=== PATIENT | female | born 1980 | race Two or more races ===

== ENCOUNTER 2020-12-09 11:09 | Emergency (ER) | payer MEDICAID, SELFPAY ==
[2020-12-09 11:26] VITALS: BP 116/74; PULSE 95; RESP 17; TEMP 36.6; O2SAT 100; BMI 22.2
--- NOTE | 2020-12-09 11:59 | XR_ITS ---
EXAMINATION: XR THORACIC SPINE XR LUMBAR SPINE CLINICAL INFORMATION: Status post pushing heavy objects now with mid to lower back pain COMPARISON: None TECHNIQUE: 2 views of the thoracic spine and 3 views of the lumbar spine were obtained FINDINGS: There are 5 nonrib-bearing lumbar-type vertebral bodies. There is no acute visible fracture or dislocation. Very mild S-shaped curvature of the thoracolumbar spine. Minimal anterior marginal osteophytes of the lower lumbar spine. Vertebral body heights and disc spaces are otherwise maintained. Posterior elements are intact. Paraspinal soft tissues are unremarkable. Visualized bowel gas pattern is nonobstructive. Incidental note of enlargement of the right hepatic lobe. Pelvic phleboliths are visualized. XR/XR thoracic spine 2V IMPRESSION: 1. No acute visible fracture or dislocation. 2. Minimal degenerative changes. 3. Incidental note of enlargement of the right hepatic lobe.
--- NOTE | 2020-12-09 11:59 | XR_ITS ---
EXAMINATION: XR THORACIC SPINE XR LUMBAR SPINE CLINICAL INFORMATION: Status post pushing heavy objects now with mid to lower back pain COMPARISON: None TECHNIQUE: 2 views of the thoracic spine and 3 views of the lumbar spine were obtained FINDINGS: There are 5 nonrib-bearing lumbar-type vertebral bodies. There is no acute visible fracture or dislocation. Very mild S-shaped curvature of the thoracolumbar spine. Minimal anterior marginal osteophytes of the lower lumbar spine. Vertebral body heights and disc spaces are otherwise maintained. Posterior elements are intact. Paraspinal soft tissues are unremarkable. Visualized bowel gas pattern is nonobstructive. Incidental note of enlargement of the right hepatic lobe. Pelvic phleboliths are visualized. XR/XR lumbar spine 2-3V IMPRESSION: 1. No acute visible fracture or dislocation. 2. Minimal degenerative changes. 3. Incidental note of enlargement of the right hepatic lobe.
--- NOTE | 2020-12-09 12:13 | ED.BACK ---
HPI - Back Pain/Injury General Chief Complaint: Back Pain/Injury Stated Complaint: back pain Time Seen by Provider: 12/09/20 11:45 Source: patient Mode of arrival: ambulatory Limitations: no limitations History of Present Illness HPI Narrative: 40yoF c PMHx of anxiety, asthma and depression presenting to the ED with complaints of mid to lower back pain since yesterday after leaving the grocery store pushing too heavy carts up a hill to her home while helping her mother as well. Reports she has tried multiple [id number] medications along with Lidoderm patches and no symptomatic relief. Denies any other symptoms complaints or concerns at this time. Related Data Previous Rx's Medication Instructions Recorded cyclobenzaprine 10 mg PO TID PRN #14 tab 12/09/20 ibuprofen 800 mg PO Q8H PRN #14 tab 12/09/20 lidocaine [Lidoderm] 2 patch TOPICAL DAILY #30 ea 12/09/20 oxycodone-acetaminophen [Percocet] 1 tab PO Q6H PRN #10 tab 12/09/20 Allergies Allergy/AdvReac Type Severity Reaction Status Date / Time Influenza Virus Vaccines Allergy Itching Verified 12/09/20 11:30 Review of Systems Review of Systems: Constitutional : No trauma, No Weight loss, No Fever, No Chills, ENT/Mouth : No Hearing loss, No Ear Pain, No Nasal Congestion, No Sinus Pain, No Hoarseness, No sore throat, No Rhinorrhea, No Swallowing Difficulty Cardiovascular : No Chest Pain, No SOB Respiratory : No Cough, No Dyspnea Gastrointestinal : No Nausea, No Vomiting, No Diarrhea, No abdominal Pain, No Hematochezia, No Melena Genitourinary : No Dysuria, No Urinary Frequency, No Hematuria, No Urinary or Bowel Incontinence/retention Musculoskeletal : + Back pain, No neck pain, No joint stiffness, No joint swelling Skin : No Skin Lesions, No rash or signs of infection Neuro : No Weakness, No radiation, No Numbness, No Paresthesias, No headache, no loss of bowel or bladder incontinence, no saddle anesthesia Denies history of IV drug usage. Yes all other systems are reviewed and are negative PMFSH Past Medical History Attestation statement: The following information was validated with the patient. Medical History Anxiety Asthma Depression Social History Social History Advance Directives: No Advance Directives Information Provided: No Physical Exam Vital Signs: Vital Signs: Last Vital Signs Temp 97.8 F 12/09/20 11:26 Pulse 71 12/09/20 12:50 Resp 18 12/09/20 12:50 BP 117/61 12/09/20 12:50 Pulse Ox 98 12/09/20 12:50 Body Mass Index 22.2 vital signs have been reviewed as normal and appeared to be correct. Blood pressure normal. Heart rate normal. Respiration rate normal. Temperature normal. Oxygen saturation normal. Appearance: Alert. Oriented X3. No acute distress. Head: Normal external exam. Normocephalic. Atraumatic. Eyes: PERRLA. EOMI. Conjunctiva and sclera normal. Eyelids normal. ENT: EAC normal. TM's Normal. Pharynx normal. Uvula midline. Moist mucous membranes. Neck: Normal inspection. Neck supple. FROM. No adenopathy. No meningeal signs. CVS: Normal heart rate and rhythm. Heart sound normal. No murmurs noted. Pulses normal throughout. Respiratory: No respiratory distress. Painless inspiration. Breath sounds normal. No wheezes/rales/rhonchi noted. Chest nontender. No accessory muscle usage noted or decreased air movement noted. Abdomen: Soft and nontender. Bowel sounds normal in all 4 quadrants. No distention noted. No organomegaly noted. No visible injury noted. Back: No CVA tenderness. Full range of motion noted. No obvious deformities, or edema. Mild para-spinal muscular tenderness from lumbar region to coccyx. Full ROM in back and lower extremities. 5/5 strength hip extension/flexion, abduction, adduction. Mild Lumbar pain with hip flexion against resistance. Straight leg raise test negative on right; Straight leg raise test negative on left; Reflexes normal ankle and knee bilaterally; EHL motor strength normal bilaterally Skin: Skin warm and dry. Normal skin color. Normal skin turgor. No rashes/lesions/lacerations noted. Extremities: Extremities exhibit normal range of motion. Extremities nontender. Neuro: Oriented X 3. No motor deficit. No sensory deficit. Reflexes normal. Course Course Course Narrative: Pt c likely muscular pain, but could be herniated disc. Neuro exam shows no deficits. Not c/w AAA/epidural abscess/dissection.No high risk Hx (Incont, fever, immunosupp, recent surgery/LP, coag, signif trauma, wt loss, puls mass, hx/o Ca, TB, or IVDU) to warrant MRI/CT today. Will obtain x-rays. Not c/w Pyelo/UTI/kidney stone. Not cauda equina syndrome. Will provide 30 mg of IM Toradol, 10 mg of Decadron and 2 Lidoderm patches. If imaging negative for any acute processes such as fractures will DC home with symptomatic treatment along with instructions return if any new or worsening symptoms. Patient understands agrees the plan. Reevaluation(s) Reevaluation #1: - patient had a vasovagal episode after receiving the Toradol injection she reports that this is common after receiving any shots although she did not tell me this when I offered her to Toradol shot. Patient was witnessed when this happened she did not hit her head she was able to lower herself to the ground and staff was next to her. Vitals are stable within normal limits. Patient denies any complaints at this time. Reports she also has had a history in the past of low potassium therefore at this time will obtain a CBC, basic metabolic panel and magnesium. Provide some apple juice as the patient's blood sugar is in the 90s and then re-evaluate. Time: 13:02 Reevaluation #2: - patient's labs within normal limits including liver function as the x-rays revealed that she had a enlarged hepatic lobe although patient does not have any abdominal pain therefore instruct patient to follow-up with her primary care provider based on the enlarged [place] lobe. Otherwise patient is feeling better will DC home with symptomatic treatment along with instructions to return if any new or worsening symptoms. Patient understands agrees the plan. Time: 14:07 MDM - Back Pain/Injury Medical Records Attestation: I reviewed the patient's medical records. Lab Data Attestation: I reviewed the patient's lab results. Result diagrams: 12/09/20 13:08 12/09/20 13:09 Labs: Lab Results 12/09/20 12/09/20 12/09/20 Range/Units 12:57 13:08 13:09 WBC 10.5 (4.8-10.8) X10*3/uL RBC 3.69 L (4.20-5.50) X10*6/uL Hgb 12.3 (12.0-16.0) g/dl Hct 36.7 L (37-47) % MCV 99.5 H (80-98) fL MCH 33.3 H (27.0-33.0) pg MCHC 33.5 (31.0-35.0) g/dl RDW 13.0 (11.0-16.0) % Plt Count 255 (160-400) X10*3/uL MPV 11.0 (9.4-12.3) fL Immature Gran % (Auto) 0.4 (0.0-0.4) % Neut % (Auto) 58.5 (45-73) % Lymph % (Auto) 29.3 (20-40) % Stanton % (Auto) 8.9 (2-11) % Eos % (Auto) 2.5 (0-4) % Baso % (Auto) 0.4 (0-2) % Lymph # (Auto) 3.1 (1.2-4.9) X10*3/uL Stanton # (Auto) 0.9 (0.1-1.2) X10*3/uL Eos # (Auto) 0.3 (0.0-0.4) X10*3/uL Baso # (Auto) 0.0 (0.0-0.2) X10*3/uL Abs Immat Gran (auto) 0.04 H (0.00-0.03) X10*3/uL Absolute Neuts (auto) 6.2 (2.0-8.3) X10*3/uL Absolute Nucleated RBC 0.000 (0.0-0.012) X10*3/uL Nucleated RBC % (auto) 0.0 (0.0-0.2) /100WBC Hold Blue Top SEE NOTE Sodium (135-145) mmol/L Potassium (3.3-5.1) mmol/l Chloride (96-108) mmol/L Carbon Dioxide (22-29) mmol/L Anion Gap (12-20) BUN (9-16) mg/dL Creatinine (0.5-1.4) mg/dL Estim Creat Clear Calc Estimated GFR POC Glucose 92 (60-115) mg/dL Random Glucose (60-115) mg/dL Calcium (8.4-10.2) mg/dL Magnesium (1.6-2.6) mg/dL Total Bilirubin (0.0-1.0) mg/dL Direct Bilirubin (0.0-0.5) mg/dL AST (5-31) U/L ALT (0-31) U/L Alkaline Phosphatase (39-117) U/L Total Protein (6.5-8.0) g/dL Albumin (3.5-5.0) g/dL 12/09/20 Range/Units 13:09 WBC (4.8-10.8) X10*3/uL RBC (4.20-5.50) X10*6/uL Hgb (12.0-16.0) g/dl Hct (37-47) % MCV (80-98) fL MCH (27.0-33.0) pg MCHC (31.0-35.0) g/dl RDW (11.0-16.0) % Plt Count (160-400) X10*3/uL MPV (9.4-12.3) fL Immature Gran % (Auto) (0.0-0.4) % Neut % (Auto) (45-73) % Lymph % (Auto) (20-40) % Stanton % (Auto) (2-11) % Eos % (Auto) (0-4) % Baso % (Auto) (0-2) % Lymph # (Auto) (1.2-4.9) X10*3/uL Stanton # (Auto) (0.1-1.2) X10*3/uL Eos # (Auto) (0.0-0.4) X10*3/uL Baso # (Auto) (0.0-0.2) X10*3/uL Abs Immat Gran (auto) (0.00-0.03) X10*3/uL Absolute Neuts (auto) (2.0-8.3) X10*3/uL Absolute Nucleated RBC (0.0-0.012) X10*3/uL Nucleated RBC % (auto) (0.0-0.2) /100WBC Hold Blue Top Sodium 139 (135-145) mmol/L Potassium 4.2 (3.3-5.1) mmol/l Chloride 106 (96-108) mmol/L Carbon Dioxide 26 (22-29) mmol/L Anion Gap 11 L (12-20) BUN 10 (9-16) mg/dL Creatinine 0.70 (0.5-1.4) mg/dL Estim Creat Clear Calc 71.4 Estimated GFR > 60 POC Glucose (60-115) mg/dL Random Glucose 97 (60-115) mg/dL Calcium 8.8 (8.4-10.2) mg/dL Magnesium 2.3 (1.6-2.6) mg/dL Total Bilirubin 0.4 (0.0-1.0) mg/dL Direct Bilirubin 0.2 (0.0-0.5) mg/dL AST 12 (5-31) U/L ALT 8 (0-31) U/L Alkaline Phosphatase 52 (39-117) U/L Total Protein 6.3 L (6.5-8.0) g/dL Albumin 4.1 (3.5-5.0) g/dL Imaging Data Thoracic/lumbar: Attestation: I personally reviewed and interpreted this imaging study as follows: Radiologist's impression: FINDINGS: There are 5 nonrib-bearing lumbar-type vertebral bodies. There is no acute visible fracture or dislocation. Very mild S-shaped curvature of the thoracolumbar spine. Minimal anterior marginal osteophytes of the lower lumbar spine. Vertebral body heights and disc spaces are otherwise maintained. Posterior elements are intact. Paraspinal soft tissues are unremarkable. Visualized bowel gas pattern is nonobstructive. Incidental note of enlargement of the right hepatic lobe. Pelvic phleboliths are visualized. IMPRESSION: 1. No acute visible fracture or dislocation. 2. Minimal degenerative changes. 3. Incidental note of enlargement of the right hepatic lobe. Discharge Plan Discharge Clinical Impression: Syncope, vasovagal, Lumbar strain, Strain of thoracic region Patient Disposition: Home, Self-Care Instructions: Syncope (ED), Low Back Strain (ED), Lower Back Exercises (ED), Core Strengthening Exercises (ED) Additional Instructions: You had a enlarged hepatic lobe although you are not having any abdominal pain in your liver function enzymes are within normal limits if you develop any abdominal pain you need to return if not just follow up with her primary care provider. Return if any new or worsening symptoms. Prescriptions: New cyclobenzaprine 10 mg tablet 10 mg PO TID PRN (Reason: muscle spasm) Qty: 14 RF: 0 ibuprofen 800 mg tablet 800 mg PO Q8H PRN (Reason: pain) Qty: 14 RF: 0 oxycodone-acetaminophen [Percocet] 5-325 mg tablet 1 tab PO Q6H PRN (Reason: pain) Qty: 10 RF: 0 lidocaine [Lidoderm] 5 % adhesive patch,medicated 2 patch topical DAILY Qty: 30 RF: 0 Referrals: [facility] [Primary Care Provider] - 2 days Stand Alone Forms: Work/School Release Print Language: Luxembourger
[2020-12-09] MEDS: dexAMETHasone 2 MG TABLET 10 MG PO (12:35)
[2020-12-09] MEDS: Ketorolac Tromethamine 30 MG/ML VIAL IM (12:35)
[2020-12-09] MEDS: Lidocaine 4 % Patch ADH..PATCH 2 PATCH TRANSDERMA (12:36)
--- NOTE | 2020-12-09 12:49 | PC.NURSE ---
PT HAD A NEAR SYNCOPAL EPISODE FOLLOWING IM INJECTION OF TORADOL. PT ASSISTED TO STRETCHER. SKIN PALE. A+OX3. VSS, 2 LITERS O2 NASAL CANNULA APPLIED. PROVIDER AWARE.
[2020-12-09 12:50] VITALS: BP 117/61; PULSE 71; RESP 18; O2SAT 98
[2020-12-09 13:00] LABS: Glucose, Whole Blood 92 mg/dL (60-115)
--- NOTE | 2020-12-09 13:14 | PC.NURSE ---
pt more alert now, texting on cellular device. skin wpd. neuros intact, blood drawn and sent to lab.
[2020-12-09 13:15] LABS: Basophils Percent Auto 0.4 % (0-2); Eosinophils Absolute Auto 0.3 X10*3/uL (0.0-0.4); Eosinophils Percent Auto 2.5 % (0-4); Hematocrit 36.7 % (37-47); Hemoglobin 12.3 g/dl (12.0-16.0); Imm Gran Abs Auto 0.04 X10*3/uL (0.00-0.03); Imm Gran Pct Auto 0.4 % (0.0-0.4); Lymphocytes Absolute Auto 3.1 X10*3/uL (1.2-4.9); Lymphocytes Percent Auto 29.3 % (20-40); MANUAL DIFF FLAG NO; Mean Corpuscular HGB Conc 33.5 g/dl (31.0-35.0); Mean Corpuscular Hemoglobin 33.3 pg (27.0-33.0); Mean Corpuscular Volume 99.5 fL (80-98); Monocytes Absolute Auto 0.9 X10*3/uL (0.1-1.2); Monocytes Percent Auto 8.9 % (2-11); Neutrophils Absolute Auto 6.2 X10*3/uL (2.0-8.3); Neutrophils Percent Auto 58.5 % (45-73); Platelet Count 255 X10*3/uL (160-400); Red Blood Count 3.69 X10*6/uL (4.20-5.50); White Blood Count 10.5 X10*3/uL (4.8-10.8)
[2020-12-09 13:43] LABS: Alanine Aminotransferase 8 U/L (0-31); Albumin Level 4.1 g/dL (3.5-5.0); Alkaline Phosphatase 52 U/L (39-117); Anion Gap 11 (12-20); Aspartate Amino Transferase 12 U/L (5-31); Bilirubin Direct 0.2 mg/dL (0.0-0.5); Bilirubin Total 0.4 mg/dL (0.0-1.0); Blood Urea Nitrogen 10 mg/dL (9-16); Calcium 8.8 mg/dL (8.4-10.2); Carbon Dioxide 26 mmol/L (22-29); Chloride 106 mmol/L (96-108); Creatinine Clr Calc Pharmacy 71.4; Estimated Glomerular Filt Rate > 60; Glucose Random 97 mg/dL (60-115); Magnesium 2.3 mg/dL (1.6-2.6); Potassium 4.2 mmol/l (3.3-5.1); Sodium 139 mmol/L (135-145); Total Protein 6.3 g/dL (6.5-8.0)
--- NOTE | 2020-12-09 14:25 | PC.NURSE ---
PT AMBULATED 50 FT TO BATHROOM WITH THIS RN, NO DIZZINESS, STEADY GAIT, MOVING ALL EXTREMITIES.
== END 2020-12-09 14:26 | disposition home or self-care (01) ==
PROVIDERS: Physician Assistant Medical; Emergency Provider Internal Medicine
DX: R55 Syncope and collapse (principal); S39.012A Strain of muscle, fascia and tendon of lower back, initial encounter; S29.012A Strain of muscle and tendon of back wall of thorax, initial encounter; X50.9XXA Other and unspecified overexertion or strenuous movements or postures, initial encounter; Y93.89 Activity, other specified; Y92.414 Local residential or business street as the place of occurrence of the external cause; Y99.9 Unspecified external cause status
CPT/HCPCS: 36415; 72070; 72100; 80048; 80076; 82947; 83735; 85025; 96372; 99283; 99284; J1885; J8540

== ENCOUNTER 2021-03-28 10:37 | Outpatient (REF) | payer MEDICAID, SELFPAY | END 2021-03-28 10:38 | disposition home or self-care (01) | LOC: HO.LAB 10:37 | PROVIDERS: Visit Provider Internal Medicine | DX: Z20.822 Contact with and (suspected) exposure to COVID-19 (principal) | CPT/HCPCS: C9803; U0003; U0005 ==

== ENCOUNTER 2021-08-09 11:28 | Outpatient (REF) | payer MEDICAID, SELFPAY ==
[2021-08-09 12:23] LABS: Hematocrit 36.9 % (37-47); Hemoglobin 12.4 g/dl (12.0-16.0); Mean Corpuscular HGB Conc 33.6 g/dl (31.0-35.0); Mean Corpuscular Hemoglobin 33.4 pg (27.0-33.0); Mean Corpuscular Volume 99.5 fL (80-98); Mean Platelet Volume 10.7 fL (9.4-12.3); Platelet Count 244 X10*3/uL (160-400); Red Blood Count 3.71 X10*6/uL (4.20-5.50); White Blood Count 7.7 X10*3/uL (4.8-10.8)
[2021-08-09 12:43] LABS: Estimated Average Glucose 85 mg/dL; Hemoglobin A1c % 4.6 %
[2021-08-09 13:12] LABS: Alanine Aminotransferase 8 U/L (0-31); Albumin Level 4.1 g/dL (3.5-5.0); Alkaline Phosphatase 62 U/L (39-117); Anion Gap 11 (12-20); Aspartate Amino Transferase 15 U/L (5-31); Bilirubin Direct 0.3 mg/dL (0.0-0.5); Bilirubin Total 0.7 mg/dL (0.0-1.0); Blood Urea Nitrogen 10 mg/dL (9-16); Calcium 9.6 mg/dL (8.4-10.2); Carbon Dioxide 25 mmol/L (22-29); Chloride 108 mmol/L (96-108); Cholesterol 150 mg/dL; Estimated Glomerular Filt Rate > 60; Glucose Random 87 mg/dL (60-115); HDL Cholesterol 43 mg/dL; LDL Cholesterol Calculated 97 mg/dl; Potassium 3.8 mmol/L (3.3-5.1); Sodium 140 mmol/L (135-145); Total Protein 6.4 g/dL (6.5-8.0); Triglycerides 50 mg/dL
[2021-08-09 13:37] LABS: Free T4 (Free Thyroxine) 0.77 ng/dL (0.71-1.85); Thyroid Stimulating Hormone 2.74 uIU/mL (0.32-4.0); Vitamin D 25-OH Total 24.4 ng/mL (>30)
[2021-08-09 14:14] LABS: CT PCR NOT DETECTED (Not Detect.); NG PCR NOT DETECTED (Not Detect.)
[2021-08-10 04:33] LABS: Syphilis Screen Nonreactive (Nonreactive)
[2021-08-10 04:41] LABS: Hepatitis A Antibody IgG Nonreactive (Nonreactive); ~Hepatitis A Antibody IgG 0.32 S/CO (0.00-0.99)
[2021-08-10 04:58] LABS: ~HepC Num1 0.09 S/CO (0.00-0.79); ~Hepatitis C Antibody Nonreactive (Nonreactive)
[2021-08-10 05:03] LABS: HBS Num1 0.87 mIU/mL (0-7.99); HBsAGNum1 0.25 S/CO (0.00-0.99); HIV AB/AG Nonreactive (Nonreactive); HIV Num 1 0.06 S/CO (0.00-0.99); Hepatitis B Surface Antigen Negative (Negative); ~Hepatitis B Surface Antibody NONREACTIVE (Nonreactive)
== END 2021-08-09 11:29 | disposition home or self-care (01) ==
LOC: HO.LAB 11:28
PROVIDERS: PCP Family Medicine; Visit Provider Family Medicine
DX: Z00.00 Encounter for general adult medical examination without abnormal findings (principal)
CPT/HCPCS: 80048; 80061; 80076; 82306; 83036; 84439; 84443; 85027; 86706; 86708; 86780; 86803; 87340; 87389; 87491; 87591

== ENCOUNTER 2021-08-16 13:38 | Outpatient (REF) | payer MEDICAID, SELFPAY ==
--- NOTE | ~2021-08-16 | MM_ITS ---
EXAMINATION: MM SCREENING DIGITAL BREAST TOMOSYNTHESIS, BILATERAL CLINICAL INFORMATION: Screening. Asymptomatic. The lifetime risk of breast cancer based on the Tyrer-Cuzick Model is 7%. COMPARISON: Mammography: 06/01/2019 (baseline), targeted right breast ultrasound 06/01/2019. TECHNIQUE: Digital breast tomosynthesis is performed in both the craniocaudal and mediolateral oblique views along with computer-aided detection (CAD). Synthesized 2D images are generated from the tomosynthesis. FINDINGS: The breasts are heterogeneously dense, which may obscure small masses (ACR BI-RADS breast composition Category c). The right breast shows no interval suspicious mass or architectural abnormality. There are no abnormal calcifications in either breast. The axilla and skin contours are unremarkable. Left breast has a new smooth oval mass 0.8 cm upper outer quadrant approximately 4 cm from nipple, likely a cyst. MM/MM tomosynthesis screening BI IMPRESSION: 1. Left: New smooth oval mass under 1 cm upper outer quadrant, likely a cyst. 2. Right: There are no significant changes from prior study. ASSESSMENT: BI-RADS 0: Incomplete - Need Additional Imaging Evaluation RECOMMENDATION: 1. Targeted left breast ultrasound. 2. Radiology department staff will contact the patient for additional imaging. Reviewed with This patient's information was entered into a reminder system with a target due date for their next mammogram.
== END 2021-08-16 13:39 | disposition home or self-care (01) ==
LOC: HO.MAMMO 13:38
PROVIDERS: PCP Family Medicine; Visit Provider Family Medicine
DX: Z12.31 Encounter for screening mammogram for malignant neoplasm of breast (principal)
CPT/HCPCS: 77063; 77067

== ENCOUNTER 2021-08-21 12:36 | Outpatient (REF) | payer MEDICAID, SELFPAY ==
--- NOTE | ~2021-08-21 | US_ITS ---
EXAMINATION: US DIAGNOSTIC ULTRASOUND BREAST, LEFT CLINICAL INFORMATION: Circumscribed density. COMPARISON: August 16, 2021 and June 01, 2019. TECHNIQUE: Ultrasound of the breast is performed with real-time carroll scale imaging and color Doppler. FINDINGS: About the 3:00 position 7 cm from the nipple there is a cyst with smooth back wall and increased through sound transmission. No internal vascularity. The cyst is wider than it is tall. It measures approximately 1.2 x 0.4 x 1.4 cm in size. This corresponds in size of and location to the mammographic finding. Results are discussed with the patient at time of visit. US/US breast LT limited IMPRESSION: Mammographic finding corresponds to a cyst at the 3:00 position 7 cm from nipple. ASSESSMENT: BI-RADS 2: Benign RECOMMENDATION: Routine annual mammography screening due in 12 months. This patient's information was entered into a reminder system with a target due date for their next mammogram.
== END 2021-08-21 12:37 | disposition home or self-care (01) ==
LOC: HO.MAMMO 12:36
PROVIDERS: Visit Provider Family Medicine
DX: N60.02 Solitary cyst of left breast (principal)
CPT/HCPCS: 76642

== ENCOUNTER 2022-03-17 20:24 | Emergency (ER) | payer MEDICAID, SELFPAY ==
[2022-03-17 20:49] VITALS: BP 117/66; PULSE 92; RESP 17; TEMP 37.1; O2SAT 98; BMI 19.5
--- NOTE | 2022-03-17 21:19 | ED.GENADULT ---
HPI - General Adult General Chief complaint: Back Pain/Injury Stated complaint: sharp pain in back, meds aren't working Source: patient Mode of arrival: ambulatory Limitations: no limitations History of Present Illness HPI narrative: 41-year-old female presents with muscular skeletal pain in her back. States that her back is been spasming and that she has been taking naproxen and baclofen with poor effect she has been trying to massage the site with poor effect. Does not report any particular strain, trauma, fall, or repetitive motion. Onset (ago): day(s) (5) Location: right and upper extremity Radiation: non-radiation Severity: moderate Severity scale (1-10): 6 Quality: stabbing and aching Pain Consistency: constant Relieving factors: none Exacerbating factors: movement and other (Palpation) Associated symptoms: denies other symptoms Treatments prior to arrival: NSAID Related Data Previous Rx's Medication Instructions Recorded cyclobenzaprine 10 mg tablet 10 mg PO TID PRN #14 tab 12/09/20 ibuprofen 800 mg tablet 800 mg PO Q8H PRN #14 tab 12/09/20 lidocaine 5 % topical patch 2 patch TOPICAL DAILY #30 ea 12/09/20 (Lidoderm) oxycodone-acetaminophen 5 mg-325 1 tab PO Q6H PRN #10 tab 12/09/20 mg tablet (Percocet) cyclobenzaprine 10 mg tablet 10 mg PO TID PRN #20 tab 03/17/22 Allergies Allergy/AdvReac Type Severity Reaction Status Date / Time Influenza Virus Vaccines Allergy Itching Verified 03/17/22 20:48 Review of Systems Review of Systems: Constitutional: No Fever, No Chills ENT/Mouth: No Ear Pain, No Hoarseness, No sore throat Eyes: No Eye Pain, No Swelling, No Redness, No Foreign Body Cardiovascular: No Chest Pain, No SOB Respiratory: No Cough, No Dyspnea Gastrointestinal: No Nausea, No Vomiting, No Diarrhea, No abdominal Pain Genitourinary: No Dysuria, No Hematuria Musculoskeletal: positive right trapezius pain, No Myalgias, No Joint Swelling Skin: No Skin lacerations, No rash Neuro: No Weakness, No Numbness, No Paresthesias, No Loss of Consciousness, No Dizziness, No Headache Psych: No Anxiety/Panic, No Depression Heme/Lymph: no easy bruising, no Lymphadenopathy Endocrine: No Polyuria, No Polydipsia Yes all other systems are reviewed and are negative [facility] Past Medical History Attestation statement: The following information was validated with the patient. Source: old records reviewed Medical History Anxiety Asthma Depression Social History Social History Advance Directives: No Physical Exam ED Vital Signs: Vital Signs - 24 hr 03/17/22 20:49 Temperature 98.7 F Pulse Rate 92 Respiratory Rate 17 Blood Pressure 117/66 Pulse Oximetry 98 BMI result Body Mass Index 19.5 Appearance: Alert. Oriented X3. No acute distress. Eyes: Pupils equal, round and reactive to light. ENT: Pharynx normal. Neck: Normal inspection. Neck supple. CVS: Normal heart rate and rhythm. Pulses normal. Respiratory: No respiratory distress. Breath sounds normal. Abdomen: Soft and nontender. Skin: Skin warm and dry. Normal skin color. Normal skin turgor. Extremities: Moves all extremities against resistance. Musculoskeletal spasm noted at the trapezius between the scapula and acromion process. Brisk capillary refill equal pulses. Strength 5/5 to all extremities. No vertebral tenderness or step-offs noted. Neuro: No motor deficit. No sensory deficit. Cranial nerves 2-12 intact. Course Course Course Narrative: 41-year-old female presents with trapezius spasm to the right side. Has full range of motion, strength 5/5 to all extremities, no vertebral tenderness or step-offs. Full range of motion to neck. No axial loading tenderness noted. There is a palpable muscular knot between the scapula and the acromion process to the right side. Tender to palpation. Patient was advised use muscle relaxers, heat or ice as needed, follow-up with primary care physician, possible massage therapy and physical therapy if needed. Patient does not have any abdominal pain or tenderness. No indication of cholecystitis as abdominal palpation and exam is negative for acute findings. Patient verbalized understanding of and agrees to plan of care to discharge home. Verbalized understanding of signs and symptoms indicating need for emergent intervention Medical Decision Making Differential Diagnosis Differential Diagnosis: Muscle spasm, musculoskeletal strain Medical Records Medical records reviewed: Yes I reviewed the patient's medical records. Discharge Plan Discharge Clinical Impression: Muscle spasm Patient Disposition: Home, Self-Care Instructions: Muscle Spasm (ED) Additional Instructions: You were evaluated for muscle spasm. Please take cyclobenzaprine 10 mg every 8 hours as needed for pain management and muscle spasming. This medication is a muscle relaxer, this medication can delay reaction time, increased risk for drowsiness, and falls. Do not drive or operate machinery while taking this medication. Please follow-up with your primary care physician. You may need physical therapy or massage therapy to help with this spasming. Thank you for choosing this emergency department for evaluation. Please follow-up with primary care physician as needed. Return to the emergency department for any new, concerning, or worsening symptoms. Prescriptions: New cyclobenzaprine 10 mg tablet 10 mg PO TID PRN (Reason: muscle spasm) Qty: 20 0RF No Action cyclobenzaprine 10 mg tablet 10 mg PO TID PRN (Reason: muscle spasm) Qty: 14 0RF ibuprofen 800 mg tablet 800 mg PO Q8H PRN (Reason: pain) Qty: 14 0RF oxycodone-acetaminophen [Percocet] 5-325 mg tablet 1 tab PO Q6H PRN (Reason: pain) Qty: 10 0RF lidocaine [Lidoderm] 5 % adhesive patch,medicated 2 patch topical DAILY Qty: 30 0RF Rx Instructions: leave on most painful area for up to 12 hrs. Can be substituted Interventions: ED Discharge Assessment Last Done: 03/17/22 21:50 Discharge Date/Time: 03/17/22 21:53
[2022-03-17] MEDS: Ketorolac Tromethamine 60 MG/2 ML VIAL IM (21:47)
[2022-03-17] MEDS: Cyclobenzaprine HCl 10 MG TABLET PO (21:48)
== END 2022-03-17 21:53 | disposition home or self-care (01) ==
PROVIDERS: Emergency Provider Emergency Medicine Emergency Medical Services
DX: M62.830 Muscle spasm of back (principal); J45.909 Unspecified asthma, uncomplicated
CPT/HCPCS: 96372; 99283; 99284; J1885

== ENCOUNTER 2023-11-27 12:16 | Outpatient (REF) | payer MEDICAID, SELFPAY ==
[2023-11-27 13:01] LABS: Hemoglobin 11.8 g/dl (12.0-16.0); Mean Corpuscular HGB Conc 33.7 g/dl (31.0-35.0); Mean Corpuscular Volume 97.8 fL (80.0-98.0); Mean Platelet Volume 10.7 fL (9.4-12.3); Platelet Count 252 X10*3/uL (160-400); Red Blood Count 3.58 X10*6/uL (4.20-5.50); Red Cell Distribution Width 14.5 % (11.0-16.0); White Blood Count 9.1 X10*3/uL (4.8-10.8)
[2023-11-27 13:31] LABS: Alanine Aminotransferase 8 U/L (0-31); Albumin Level 3.9 g/dL (3.5-5.0); Alkaline Phosphatase 57 U/L (39-117); Anion Gap 10 (12-20); Aspartate Amino Transferase 14 U/L (5-31); Bilirubin Direct 0.1 mg/dL (0.0-0.5); Bilirubin Total 0.3 mg/dL (0.0-1.0); Blood Urea Nitrogen 8 mg/dL (9-16); Calcium 8.9 mg/dL (8.4-10.2); Carbon Dioxide 28 mmol/L (22-29); Chloride 108 mmol/L (96-108); Cholesterol 159 mg/dL (<200); Estimated Glomerular Filt Rate > 60; Glucose Random 80 mg/dL (60-115); HDL Cholesterol 45 mg/dL (>40); LDL Cholesterol Calculated 100 mg/dL (<100); Potassium 3.6 mmol/L (3.3-5.1); Sodium 142 mmol/L (135-145); Total Protein 6.5 g/dL (6.5-8.0); Triglycerides 74 mg/dL (<150)
[2023-11-27 13:48] LABS: Free T4 (Free Thyroxine) 0.79 ng/dL (0.71-1.85); Vitamin D 25-OH Total 14.8 ng/mL (>30)
[2023-11-27 14:11] LABS: Estimated Average Glucose 85 mg/dL; Hemoglobin A1c % 4.6 % (<6.0)
[2023-11-27 15:37] LABS: CT PCR NOT DETECTED (Not Detect.); NG PCR NOT DETECTED (Not Detect.)
[2023-11-28 08:21] LABS: HBS Num1 0.12 mIU/mL (0-7.99); HBsAGNum1 0.43 S/CO (0.00-0.99); HIV AB/AG Nonreactive (Nonreactive); HIV Num 1 0.05 S/CO (0.00-0.99); Hepatitis B Surface Antigen Negative (Negative); ~HepC Num1 0.09 S/CO (0.00-0.79); ~Hepatitis B Surface Antibody NONREACTIVE (Nonreactive); ~Hepatitis C Antibody Nonreactive (Nonreactive)
[2023-11-28 14:38] LABS: RPR Rapid Plasma Reagin NON-REACTIVE (NON-REACTIVE)
[2023-11-29 20:14] LABS: TS Negative Control Passed; TS Panel A 1; TS Panel B 0; TS Positive Control Passed; TSpotTB Negative (Negative)
== END 2023-11-27 12:17 | disposition home or self-care (01) ==
LOC: HO.LAB 12:16
PROVIDERS: PCP Family Medicine; Visit Provider Family Medicine
DX: R23.2 Flushing (principal)
CPT/HCPCS: 0353U; 80048; 80061; 80076; 82306; 83036; 84439; 84443; 85027; 86481; 86592; 86706; 86803; 87340; 87389

== ENCOUNTER 2023-12-26 12:15 | Outpatient (REF) | payer MEDICAID, SELFPAY ==
--- NOTE | ~2023-12-26 | MM_ITS ---
EXAMINATION: MM SCREENING DIGITAL BREAST TOMOSYNTHESIS, BILATERAL CLINICAL INFORMATION: Screening. Asymptomatic. COMPARISON: Mammography: This study is compared with prior exams dating back to 2019. TECHNIQUE: Digital breast tomosynthesis is performed in both the craniocaudal and mediolateral oblique views along with computer-aided detection (CAD). Synthesized 2D images are generated from the tomosynthesis. FINDINGS: The breasts are heterogeneously dense, which may obscure small masses (ACR BI-RADS breast composition Category c). There are grouped calcifications in the upper outer quadrant of the left breast anterior depth. It warrant additional mammographic imaging magnification. In the right breast, there are no significant masses, abnormal calcifications, or other abnormalities. MM/MM tomosynthesis screening BI IMPRESSION: Grouped calcifications in the upper outer quadrant of the left breast warrants additional mammographic imaging with magnification. No mammographic signs of malignancy right breast. ASSESSMENT: BI-RADS BI-RADS 0 - Incomplete: Needs additional Imaging. RECOMMENDATION: Additional views of the left breast. Radiology department staff will contact the patient for additional imaging. Additional Imaging required This examination should not preclude the clinical evaluation of a suspicious palpable abnormality. This patient's information was entered into a reminder system with a target due date for their next mammogram.
== END 2023-12-26 12:16 | disposition home or self-care (01) ==
LOC: HO.MAMMO 12:15
PROVIDERS: PCP Family Medicine; Visit Provider Family Medicine
DX: Z12.31 Encounter for screening mammogram for malignant neoplasm of breast (principal)
CPT/HCPCS: 77063; 77067

== ENCOUNTER → 2023-12-26 12:30 | Outpatient (BNV) | payer MEDICAID, SELFPAY | PROVIDERS: PCP Family Medicine; Visit Provider Radiology Diagnostic Radiology | DX: Z12.31 Encounter for screening mammogram for malignant neoplasm of breast (principal) | CPT/HCPCS: 77063; 77067 ==

== ENCOUNTER 2024-01-30 12:54 | Outpatient (REF) | payer MEDICAID, SELFPAY ==
--- NOTE | ~2024-01-30 | US_ITS ---
EXAMINATION: US PELVIS CLINICAL INFORMATION: Irregular menses for 3-4 months LMP 01/04/2024 COMPARISON: None available. TECHNIQUE: Ultrasound of the pelvis is performed using both transabdominal and transvaginal transducers along with Doppler. Transvaginal imaging is performed due to inadequate visualization transabdominally. FINDINGS: Uterus: The uterus is anteverted and measures 10.0 x 4.6 x 5.6 cm. No focal fibroid The endometrial thickness is 1.4 cm The uterus is smooth in contour and has normal myometrial echogenicity. Adnexa: Both ovaries are visualized. There is normal color flow to the adnexa. There is no ovarian torsion. There is no pelvic ascites or fluid collection. Right ovary measures 2.6 x 1.9 x 1.7 cm. Volume 4.4 mL. Left ovary measures 2.3 x 1.4 x 1.5 cm. Volume 2.5 mL. There are prominent vessels in the left adnexa suggestive of pelvic congestion syndrome. US/US pelvic and transvaginal IMPRESSION: 1. Normal uterus and ovaries. 2. Prominent vessels in the left adnexa suggestive of pelvic congestion syndrome.
== END 2024-01-30 12:55 | disposition home or self-care (01) ==
LOC: HO.US 12:54
PROVIDERS: PCP Family Medicine; Visit Provider Family Medicine
DX: N93.9 Abnormal uterine and vaginal bleeding, unspecified (principal)
CPT/HCPCS: 76830; 76856

== ENCOUNTER 2024-02-11 11:56 | Outpatient (REF) | payer MEDICAID, SELFPAY ==
[2024-02-12 12:44] LABS: Follicle Stimulating Hormone 20.2 mIU/mL; Lutenizing Hormone 27.5 mIU/mL
== END 2024-02-11 11:57 | disposition home or self-care (01) ==
LOC: HO.HHCL 11:56
PROVIDERS: Visit Provider Family Medicine
DX: R23.2 Flushing (principal)
CPT/HCPCS: 36415; 83001; 83002

== ENCOUNTER 2024-02-11 14:45 | Outpatient (REF) | payer MEDICAID, SELFPAY ==
--- NOTE | ~2024-02-11 | MM_ITS ---
EXAMINATION: MM DIAGNOSTIC DIGITAL MAMMOGRAPHY, LEFT CLINICAL INFORMATION: Follow-up diagnostic views for calcifications anterior left breast upper outer quadrant. COMPARISON: Mammography: Screening mammography 12/26/2023, 08/16/2021, 06/01/2019. TECHNIQUE: Digital mammography is performed in the following views: 2-D spot magnification left CC and ML views. FINDINGS: The breasts are heterogeneously dense, which may obscure small masses (ACR BI-RADS breast composition Category c). Diagnostic views demonstrate loosely grouped minimally pleomorphic calcifications arranged in a circular pattern, without linear, casting, or branching forms, or suspicious distribution. Approximately 6 calcifications are present. These have a probably benign appearance. Recommend six-month interval follow-up targeted left breast magnification views for assessment of stability. There are are probable cysts in the imaged upper outer left breast with duct ectasia noted. Results are provided to the patient at time of visit by the technologist. MM/MM added views LT IMPRESSION: Probably benign calcifications anterior left breast, upper outer quadrant. Recommend 6 month follow-up diagnostic left mammogram to include standard magnification views. ASSESSMENT: BI-RADS BI-RADS 3 - Probably benign finding(s) - 6 month follow-up suggested RECOMMENDATION: 6 Month F/U This patient's information was entered into a reminder system with a target due date for their next mammogram.
== END 2024-02-11 14:46 | disposition home or self-care (01) ==
LOC: HO.MAMMO 14:45
PROVIDERS: PCP Family Medicine; Visit Provider Family Medicine
DX: R92.1 Mammographic calcification found on diagnostic imaging of breast (principal)
CPT/HCPCS: 36415; 77065; 83001; 83002

== ENCOUNTER → 2024-02-11 15:00 | Outpatient (BNV) | payer MEDICAID, SELFPAY | PROVIDERS: PCP Family Medicine; Visit Provider Radiology Diagnostic Radiology | DX: R92.1 Mammographic calcification found on diagnostic imaging of breast (principal) | CPT/HCPCS: 77065 ==

== ENCOUNTER 2024-06-09 13:20 | Outpatient (REF) | payer MEDICAID, SELFPAY ==
[2024-06-09 15:27] LABS: CT PCR NOT DETECTED (Not Detect.); NG PCR NOT DETECTED (Not Detect.)
[2024-06-11 13:03] LABS: HPV mRNA E6/E7 Not Detected (Not Detected)
== END 2024-06-09 13:21 | disposition home or self-care (01) ==
LOC: HO.HHCLNP 13:20
PROVIDERS: Visit Provider Family Medicine
DX: Z01.419 Encounter for gynecological examination (general) (routine) without abnormal findings (principal)
CPT/HCPCS: 36415; 87491; 87591; 87624; 88175

== ENCOUNTER 2024-12-10 10:06 | Outpatient (REF) | payer MEDICAID, SELFPAY ==
--- NOTE | ~2024-12-10 | MM_ITS ---
EXAMINATION: MM DIAGNOSTIC DIGITAL BREAST TOMOSYNTHESIS, BILATERAL CLINICAL INFORMATION: 1 year follow-up for calcifications in the upper outer left breast. COMPARISON: Mammography: Comparison is made with relevant prior exams. TECHNIQUE: Digital breast mammography with tomosynthesis is performed in both the craniocaudal and mediolateral oblique views along with computer-aided detection (CAD). FINDINGS: The breasts are heterogeneously dense, which may obscure small masses (ACR BI-RADS breast composition Category c). History seen punctate calcifications in the upper outer left breast are not definitively seen today on magnification views. There are no significant masses, abnormal calcifications, or other abnormalities. Results are provided to the patient at time of visit by the technologist. MM/MM tomosynthesis diagnostic BI IMPRESSION: Recommend one-year diagnostic follow-up with magnification views of the left breast to evaluate for upper outer quadrant calcifications. At that time the patient will be due for bilateral mammography. ASSESSMENT: BI-RADS BI-RADS 3 - Probably benign finding(s) - 12 month follow-up suggested RECOMMENDATION: 12 month diagnostic follow up This patient's information was entered into a reminder system with a target due date for their next mammogram. Electronically signed by: Daisy De La Rosa DO 12/10/2024 10:57 AM NICHOLAS
--- OUTSIDE RECORDS SUMMARY | 2024-12-10 10:13 | XMS_ITS | Continuity of Care Document ---
Author Organization [facility] Address [facility] [place] [address] Care Team Providers Care Moderate Needs Teacher Name Role Phone Vandana Albert MD Unavailable Unavailable Procedures Procedure Date US ABDOMINAL REAL TIME W/IMAGE LIMITED-P rofessional Component Abd imag w/o tran/kid/adr les Advance Directives Directive Yes / No Effective Date File Name No Information Encounters Encounter Description Practice Location Reason(s) For Visit Diagnoses Date Provider Providers Copied on Encounter [facility], [facility] [place], [address], Radiology Department No Information [address] [facility] [place] [place] [id number], . Referring Provider: Ariana Dos Santos, Vic HOLLIDAY, ANABEL Son, [address] . tel:[phone] Family History Family Member Type Diagnosis Age At Onset No Information Payers Payer name Insurance type Covered green party ID Rae montes(s) [employer] [id number] Social History Type Description Quantity Date Captured Comments Sex Female Smoking Status No Information Chief Complaint And Reason For Visit No Information Reason For Referral Reason For Referral No Information History Of Present Illness Encounter Date Complaint History Of Prese nt Illness No Information Functional Status Date Functional Assessmen t No Information Instructions Date Instruction Additional Infor mation No Information Assessments Type Assessment Date No Information Patient Care Teams Name Effective Dates (start - stop) Status Members No Information
== END 2024-12-10 10:07 | disposition home or self-care (01) ==
LOC: HO.MAMMO 10:06
PROVIDERS: PCP Family Medicine; Visit Provider Family Medicine
DX: R92.1 Mammographic calcification found on diagnostic imaging of breast (principal)
CPT/HCPCS: 77062; 77066

== ENCOUNTER → 2024-12-10 10:15 | Outpatient (BNV) | payer MEDICAID, SELFPAY | PROVIDERS: PCP Family Medicine; Visit Provider Internal Medicine | DX: R92.1 Mammographic calcification found on diagnostic imaging of breast (principal); R92.333 Mammographic heterogeneous density, bilateral breasts | CPT/HCPCS: 77062; 77066 ==

== ENCOUNTER → 2025-01-03 08:44 | Outpatient (BNVA) | payer MEDICAID, SELFPAY | PROVIDERS: PCP Family Medicine; Visit Provider Nurse Practitioner Family | DX: Z12.11 Encounter for screening for malignant neoplasm of colon (principal) | CPT/HCPCS: 99212 ==

== ENCOUNTER 2025-03-22 16:30 | Emergency (ER) | payer MEDICAID, SELFPAY ==
--- NOTE | ~2025-03-22 | CT_ITS ---
CLINICAL HISTORY: tingling in extremites CT head without contrast Comparison: None Findings: No intracranial mass, midline shift, hydrocephalus, or acute hemorrhage. No acute process in sinuses or mastoids. No acute bony abnormality. Impression: No acute intracranial process This document has been electronically signed by: Luisito Tinajero MD on 03/22/2025 22:32:52
--- NOTE | ~2025-03-22 | CT_ITS ---
CLINICAL HISTORY: right sided neck pain radiating down arm CT cervical spine without contrast Comparison: None Findings: No acute fracture or dislocation. Posterior alignment is normal. Mild degenerative change. No radiopaque foreign bodies. Impression: No acute processes This document has been electronically signed by: Luisito Tinajero MD on 03/22/2025 22:31:55
--- NOTE | 2025-03-22 16:34 | ECG_ITS ---
Test Reason : TACHYCARDIA Blood Pressure : */* mmHG Vent. Rate : 88 BPM Atrial Rate : 88 BPM P-R Int : 158 ms QRS Dur : 70 ms QT Int : 340 ms P-R-T Axes : 52 20 28 degrees QTcB Int : 411 ms Normal sinus rhythm Cannot rule out Anterior infarct , age undetermined Abnormal ECG No previous ECGs available Referred By: Nolan Sigala Electronically Signed By: AGUEDA JIN
[2025-03-22 17:51] VITALS: BP 98/60; PULSE 74; RESP 16; TEMP 36.8; O2SAT 98; BMI 26.8
--- NOTE | 2025-03-22 20:59 | ED_ITS ---
HPI - General Adult General Chief complaint: General Medical Stated complaint: Tachycardia with hand cramp and numbness Time Seen by Provider: 03/22/25 22:07 Source: patient, RN notes reviewed and old records reviewed Mode of arrival: ambulatory Limitations: no limitations History of Present Illness ED Provider: Prudence HPI narrative: 44-year-old female with a past medical history significant for PTSD, depression, asthma, anxiety presents for evaluation of tingling in her right arm. Patient reports she has had symptoms for the last 4 or 5 days. The tingling affects only the 1st 3 fingers of the right side She also has right-sided neck pain She denies any specific trauma or fall. She does work as a [employer] and is occasionally lifting patients She states that her numbness and tingling and pain is worse if she turns her head to the side or if she tries to lift her right arm The patient's mother was concerned with the patient was having a stroke and recommend that she be evaluated The patient has a history of muscle spasms in her back and states this feels similar but in her neck. Her pain is an 07/10 Related Data Home Medications ?Medication ?Instructions ?Recorded ?Confirmed albuterol sulfate 90 mcg/actuation 2 puff inhalation Q6H PRN 01/03/25 aerosol inhaler duloxetine 30 mg capsule,delayed 30 mg PO DAILY 01/03/25 release ergocalciferol (vitamin D2) 1,250 1,250 mcg PO QWEEK 01/03/25 mcg (50,000 unit) capsule lorazepam 1 mg tablet 1 mg PO BEDTIME PRN 01/03/25 montelukast 10 mg tablet 10 mg PO DAILY 01/03/25 Previous Rx's ?Medication ?Instructions ?Recorded cyclobenzaprine 10 mg tablet 10 mg PO TID PRN muscle spasm #14 12/09/20 tabs ibuprofen 800 mg tablet 800 mg PO Q8H PRN pain #14 tabs 12/09/20 lidocaine 5 % topical patch 2 patch topical DAILY back pain 12/09/20 (Lidoderm) #30 ea oxycodone-acetaminophen 5 mg-325 1 tab PO Q6H PRN pain #10 tabs 12/09/20 mg tablet (Percocet) cyclobenzaprine 10 mg tablet 10 mg PO TID PRN muscle spasm #20 03/17/22 tabs bisacodyl 5 mg tablet,delayed 20 mg (4 x 5 mg) PO ONCE 1 day #4 01/03/25 release (Dulcolax (bisacodyl)) tabs polyethylene glycol 3350 17 238 g PO ONCE #238 grams 01/03/25 gram/dose oral powder (Miralax) cyclobenzaprine 10 mg tablet 10 mg PO TID PRN muscle spasm #20 03/22/25 tabs Allergies Allergy/AdvReac Type Severity Reaction Status Date / Time Influenza Virus Vaccines Allergy Itching Verified 03/22/25 17:54 Review of Systems 2 Constitutional: Constitutional: Denies body ache(s), Denies chills, Denies fever(s) and Denies headache(s) Eyes: Eyes: Denies blurry vision, Denies exophthalmos and Denies irritation ENT: Reports dizziness, Denies headache(s) and Reports neck pain Cardiovascular: Cardiovascular: Denies chest pain and Denies dyspnea Respiratory: Respiratory: Denies cough and Denies dyspnea Gastrointestinal: Gastrointestinal: Denies abdominal pain, Denies nausea and Denies vomiting Musculoskeletal: Musculoskeletal: Denies back pain, Reports neck pain, Reports radiating pain into limb, Reports stiffness and Reports tingling Integumentary/Breasts: Skin/Breast: Denies rash Neurologic: Reports dizziness, Denies headache(s) and Reports tingling Psychiatric: Psychiatric: Denies anxiety PMFSH Past Medical History Medical History Anxiety Depression Asthma Surgical History History of bunionectomy Family History Family History (Updated 01/03/25 @ 08:56 by IDA Trinidad) Maternal Aunt Breast cancer Paternal Aunt Breast cancer Social History Social History (Updated 01/03/25 @ 08:56 by IDA Trinidad) Alcohol intake: former Patient Tobacco Use Status: Never used Tobacco Smoked in Last 30 Days: No Use of substances other than those prescribed or required for medical reasons: Yes Substance Use Type: Marijuana Substance Use Frequency: Daily Advance Directives: No Advance Directives Information Provided: No Do you have a plan to hurt others: No Plan Physical Exam ED Vital Signs: Vital Signs - 24 hr 03/22/25 17:51 03/22/25 21:11 03/22/25 22:25 Temperature 98.2 F 98.3 F Pulse Rate 74 69 72 Respiratory Rate 16 16 18 Blood Pressure 98/60 121/79 124/72 Pulse Oximetry 98 97 98 Oxygen Delivery Method Room Air Room Air Room Air 03/22/25 22:58 Temperature 98.3 F Pulse Rate 72 Respiratory Rate 18 Blood Pressure 124/72 Pulse Oximetry 98 Oxygen Delivery Method Room Air BMI result Body Mass Index 26.8 Const General: healthy appearing, comfortable, no acute distress, alert and awake Nutritional Appearance: well nourished Orientation/consciousness: patient oriented x3 HENMT Head: Yes normocephalic and Yes atraumatic Eyes Eyelids: Yes eyelids normal Conjunctivae: conjunctivae normal Sclerae: sclerae normal Corneas: corneas normal Pupils: Equal, round and reactive pupils present EOM: EOMs intact bilaterally Neck Other: Tenderness in the right trapezius muscle group without vertebral tenderness. Neck: Yes full ROM Resp Effort & Inspection: normal respiratory effort, able to speak in complete sentences and not labored Skin General skin exam: elasticity normal Neuro General: patient oriented x3 Cranial nerves: Yes Equal, round and reactive pupils present and Yes Bilaterally intact EOM present Cognition (Neuro): normal cognition Motor exam (neuro): 5/5 motor strength present throughout, Pronator motor function not present and no tremors Extrem Other: Moving all extremities well without any obvious deformities. Course Course Course Narrative: RME: 44-year-old female presents to ED for right face right arm right neck tingling without any trauma. Patient denies any loss of vision, slurred speech, facial droop. NIH score is 0. Labs EKG head CT scan cervical spine CT scan ordered Medications Administered Discontinued Medications Generic Name Dose Route Start Last Admin Trade Name Freq PRN Reason Stop Dose Admin Cyclobenzaprine HCl 10 mg 03/22/25 22:40 03/22/25 22:45 Cyclobenzaprine Hcl 10 Mg Tablet PO 03/22/25 22:41 10 mg ONCE ONE Administration Medical Decision Making Medical Decision Making [facility] Narrative: 44-year-old female past medical history as above presents for evaluation of right-sided neck pain and numbness and tingling going into her right arm. Her history exam is most consistent with a cervical radiculopathy. The patient has an NIH stroke score of 0. She had her workup ordered in triage that included labs, EKG, CT scan of the brain and cervical spine. The imaging does not show any acute findings. No intracranial hemorrhage, mass effect or midline shift. No significant cervical spine abnormalities warranting intervention. Her labs have no significant abnormalities warranting intervention, a troponin was ordered which is negative the. The patient denies any chest pain. She rules out for ACS. EKG shows a normal sinus rhythm with a rate of 88 beats minute. No ectopy or ischemic changes. Given the patient has no focal deficits, less concerning for vertebral artery dissection or posterior stroke despite her dizziness. We will treat her for cervical radiculopathy with cyclobenzaprine and she will follow up with her PCP. Differential Diagnosis Differential Diagnoses: The differential diagnosis associated with the presentation includes Muscle strain Cervical radiculopathy Intracranial hemorrhage Vertebral artery dissection Posterior stroke Calcific tendinitis Admission/Observation Consideration of admission/observation: Escalation of care including admission/observation considered Lab Data MDM Lab Attestation statement: I reviewed the patient's lab results. As above 03/22/25 22:18 03/22/25 22:18 Labs: Lab Results 03/22/25 Range/Units 22:18 WBC 9.8 (4.8-10.8) X10*3/uL RBC 3.71 L (4.20-5.50) X10*6/uL Hgb 12.7 (12.0-16.0) g/dl Hct 36.6 L (37.0-47.0) % MCV 98.7 H (80.0-98.0) fL MCH 34.2 H (27.0-33.0) pg MCHC 34.7 (31.0-35.0) g/dl RDW 13.6 (11.0-16.0) % Plt Count 220 (160-400) X10*3/uL MPV 10.2 (9.4-12.3) fL Immature Gran % (Auto) 0.3 (0.0-0.4) % Neut % (Auto) 49.4 (45-73) % Lymph % (Auto) 36.5 (20-40) % [place] % (Auto) 10.5 (2-11) % Eos % (Auto) 3.0 (0-4) % Baso % (Auto) 0.3 (0-2) % Lymph # (Auto) 3.6 (1.2-4.9) X10*3/uL [place] # (Auto) 1.0 (0.1-1.2) X10*3/uL Eos # (Auto) 0.3 (0.0-0.4) X10*3/uL Baso # (Auto) 0.0 (0.0-0.2) X10*3/uL Abs Immat Gran (auto) 0.03 (0.00-0.03) X10*3/uL Absolute Neuts (auto) 4.8 (2.0-8.3) x10*3/uL Absolute Nucleated RBC 0.000 (0.0-0.012) X10*3/uL Nucleated RBC % (auto) 0.0 (0.0-0.2) /100WBC Sodium 142 (135-145) mmol/L Potassium 4.0 (3.3-5.1) mmol/L Chloride 109 H (96-108) mmol/L Carbon Dioxide 28 (22-29) mmol/L Anion Gap 9 L (12-20) BUN 10 (9-16) mg/dL Creatinine 0.72 (0.5-1.4) mg/dL Estim Creat Clear Calc 77.0 Estimated GFR > 60 Random Glucose 81 (60-115) mg/dL Calcium 8.7 (8.4-10.2) mg/dL Magnesium 2.1 (1.6-2.6) mg/dL Total Bilirubin 0.4 (0.0-1.0) mg/dL AST 17 (5-31) U/L ALT 11 (0-31) U/L Alkaline Phosphatase 57 (39-117) U/L Total Creatine Kinase 80 (26-140) U/L Troponin I High Sens < 2.7 (<3.5-17.0) ng/L Total Protein 6.4 L (6.5-8.0) g/dL Albumin 3.9 (3.5-5.0) g/dL Radiology Impression Discussion of test interpretation with radiology: I have reviewed the radiologist's reading. Radiologist Impression: CT head without contrast Comparison: None Findings: No intracranial mass, midline shift, hydrocephalus, or acute hemorrhage. No acute process in sinuses or mastoids. No acute bony abnormality. Impression: No acute intracranial process This document has been electronically signed by: Luisito Tinajero MD on 03/22/2025 22:32:52 CT cervical spine without contrast Comparison: None Findings: No acute fracture or dislocation. Posterior alignment is normal. Mild degenerative change. No radiopaque foreign bodies. Impression: No acute processes This document has been electronically signed by: Luisito Tinajero MD on 03/22/2025 22:31:55 Discharge Plan Discharge Clinical Impression: Cervical radiculopathy Patient Disposition: Home, Self-Care Instructions: Cervical Radiculopathy (ED) Additional Instructions: Your workup in the ER today was reassuring. This includes your blood work, EKG and the CT scan of the brain and cervical spine. Your symptoms are most likely related to a muscle strain in your neck and possibly a pinched nerve You may use ibuprofen/Tylenol for pain. You may use cyclobenzaprine for muscle spasms. This may make you drowsy, do not drink alcohol or drive after taking a Prescriptions: New cyclobenzaprine 10 mg tablet 10 mg PO TID PRN (Reason: muscle spasm) Qty: 20 0RF No Action cyclobenzaprine 10 mg tablet 10 mg PO TID PRN (Reason: muscle spasm) Qty: 14 0RF ibuprofen 800 mg tablet 800 mg PO Q8H PRN (Reason: pain) Qty: 14 0RF oxycodone-acetaminophen [Percocet] 5-325 mg tablet 1 tab PO Q6H PRN (Reason: pain) Qty: 10 0RF lidocaine [Lidoderm] 5 % adhesive patch,medicated 2 patch topical DAILY Qty: 30 0RF Rx Instructions: leave on most painful area for up to 12 hrs. Can be substituted cyclobenzaprine 10 mg tablet 10 mg PO TID PRN (Reason: muscle spasm) Qty: 20 0RF albuterol sulfate 90 mcg/actuation HFA aerosol inhaler 2 puff inhalation Q6H PRN montelukast 10 mg tablet 10 mg PO DAILY ergocalciferol (vitamin D2) 1,250 mcg (50,000 unit) capsule 1,250 mcg PO QWEEK duloxetine 30 mg capsule,delayed release(DR/EC) 30 mg PO DAILY lorazepam 1 mg tablet 1 mg PO BEDTIME PRN bisacodyl [Dulcolax (bisacodyl)] 5 mg tablet,delayed release (DR/EC) 20 mg PO ONCE 1 Days Qty: 4 0RF Rx Instructions: take 4 tabs at noon the day before your colonoscopy polyethylene glycol 3350 [Miralax] 17 gram/dose powder 238 g PO ONCE Qty: 238 0RF Rx Instructions: As directed by gastroenterology department at [facility] Interventions: ED Discharge Assessment Last Done: 03/22/25 22:58 Discharge Date/Time: 03/22/25 22:58 Print Language: Macedonian
[2025-03-22 21:11] VITALS: BP 121/79; PULSE 69; RESP 16; O2SAT 97
--- OUTSIDE RECORDS SUMMARY | 2025-03-22 21:17 | XMS_ITS | Encounter Summary ---
Author Organization [employer] Address [address] [place] [address] [address] [place] [address] Care Team Providers Care Route Driver Salesperson Name Role Phone Renetta Shane DO Primary Care Provider + [phone] Reason for Visit * Reason Onset Date Comments Nurse Triage 03/22/2025 Encounter Details Date Type Department Care Team ([facility] st Contact Info) Description 03/22/2025 Telephone [facility] [address] [place] [address] Renetta Shane DO [address] [place] [address] Nurse Triage Social History Tobacco Use Types Packs/Day Years Used Date Smoking Tobacco: Never Smokeless Tobacco: Never Housing Stability Answer Date Recorded What is your housing situation today? I have dillanchandni white 11/21/[address] you li ve. Do you have problems with any of the following? None of the above 11/21/2023 Food Insecurity Answer Date Recorded Within the past 12 months, y ou worried that your food would run out before you got money to buy more: Never True 11/21/2023 Within the past 12 months,th e food you bought just didn't last and you didn't have enough money to get more: Never True Transportation Answer Date Recorded In the past 12 months, has l ack of transportation kept you from medical appts, meetings, work or from getting things needed for daily living? No 11/21/2023 Utilities Answer Date Recorded In the past 12 months, has t he electric, gas, oil or water company threatened to shut off services in your home? No 11/21/2023 Depression Answer Date Recorded Patient Health Questionnaire-2 Score 4 11/21/2023 Comments Unknown Sex and Gender Information Value Date Recorded Sex Assigned at Female 09/30/2022 10:35 AM EDT Legal Sex Female 10:35 AM EDT Gender Identity Female 09/30/2022 10:35 AM EDT Sexual Orientation Bisexual 03/15/2023 10 :36 AM EDT documented as of this encounter Miscellaneous Notes * Telephone Encounter - Mckenzie Robles RN - 03/22/2025 2:10 PM EDT called pt to triage, spoke to pt. pt states 1-2 days duration of intermittent numbness of lips and tongue, shocks going from head down to hands, and dizziness. pt speaking well, without slurring or other associated symptoms. pt denies numbness of loss of motor of arms or legs. advised ER for evaluation as we have nothing to schedule in the [facility] today. pt states called the ER but they were not ableto tell her how busy they were or how long the wait would be. advised pt that the ER is not allowedto tell pt's this as things change minute by minute. advised ER for evaluation and [facility]. advised not to drive herself and to call 911 if needed. pt understands and agrees with plan. insurance verified. Protocol Used: Neurologic Deficit (Adult) Protocol-Based Disposition: Go to ED Now Positive Triage Question: * Headache (with neurologic deficit) * All higher-acuity triage questions were negative Care Advice Discussed: * Reasons To Call Back - You become worse * Telephone Encounter - Jelly Ruiz - 03/22/2025 12:54 PM EDT Tc from pt returning call. * Telephone Encounter - Maria Esther Vicente RN - 03/22/2025 12:41 PM EDT TC placed to patient [phone] regarding below message. RN left for patient to Red team nurses. Pt to F/U PRN. TC placed to patient son (Derek) [phone] who is not on HIPAA. RN unable to leave VM due to phonenumber not being valid, disconnected or number changed. PT to F/U PRN. * Telephone Encounter - Jelly Ruiz - 03/22/2025 9:03 AM EDT Symptom: Dizziness,light headed, lip numbness Outcome: Schedule an urgent appointment (within 4 hours) or talk to a nurse or provider soon Reason: Started within the past 3 days The caller accepted this outcome. documented in this encounter Plan of Treatment Not on file documented as of this encounter Visit Diagnoses Not on filedocumented in this encounter Care Teams Route Driver Salesperson Relationship Specialty Start Date End Date Renetta Shane DO [address] [place] [id number] PCP - General Family Medicine 06/20/21 documented as of this encounter
--- OUTSIDE RECORDS SUMMARY | 2025-03-22 21:17 | XMS_ITS | Clinical Summary ---
Author Organization [employer] Address [address] [facility] 7t [place] [address] Care Team Providers Care County Judge Name Role Phone Sheila Shanefer Primary Care Provider Allergies No known active allergies Medications LORazepam (Ativan) 1 MG tablet Take 1 tablet by mouth in the morning. Active DULoxetine HCl 30 MG Capsule Delayed Release Sprinkle 4 Active ergocalciferol (Vitamin D2) 1.25 MG (81508 UT) capsuleIndicati ons:Vitamin D deficiency Take 1 capsule (1.25 mg) by mouth 1 (one) time per week. 12 capsule 3 4 Active montelukast (Singulair) 10 MG tablet Take 1 tablet (10 mg) by mouth at bedtime. 90 tablet 3 4 08/10/20 25 Active albuterol (Ventolin HFA) 108 (90 Base) MCG/ACT inhaler INHALE 2 PUFF BY INHALATION ROUTE EVERY 4-6 HOURS IF NEEDED 18 g 1 4 Active Active Problems Problem Noted Date Diagnosed Date Hot flashes 02/17/2024 Assessment & Plan (02/17/2024 3:02 PM EDT): Likely perimenopausal -encouraged d/w psychiatry trial venlafaxine -check basic labs nml OCT 2023 -FSH, LH nml JAN 2024 -advised contact [facility] if sx change or worsen PTSD (post-traumatic stress disorder) 10/08/2023 10/08/2023 Assessment & Plan (02/17/2024 2:59 PM EDT): With anger management issues -she denies any SI/HI -she has the number for crisis -cont med regimen as per psychiatry -f/u with therapist and psychiatrist as scheduled Mild persistent asthma 10/08/2023 Assessment & Plan (02/17/2024 3:01 PM EDT): Controlled off flovent -continue singulair daily -continue albuterol prn -will restart flovent as needed Depressive disorder 10/08/2023 10/08/2023 Marijuana user 10/08/2023 10/08/2023 Anxiety 10/08/2023 10/08/2023 Periodontal disease 09/26/2023 Resolved Problems Problem Noted Date Diagnosed Date Resolved Date Abnormal uterine bleeding (AUB) 02/17/2024 06/09/2024 Assessment & Plan (02/17/2024 3:04 PM EDT): Menses nml since last visit -pelvic US with nml uterus and ovaries with 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 JAN 2024 -advised contact [facility] if sx recur Encounters Date Type Department Care Team Description 03/22/2025 Telephone [facility] MEDICINE [address] [place] [address] Renetta Shane DO Nurse Triage 02/11/2025 Population Health Risk Score [facility] ([facility]) Department [address] [phone] Provider, Population Health Generic 01/05/2025 Telephone [facility] MEDICINE [address] [place] [address] Jennifer Prajapati [place] Appointment Request (Called patient twice telephone number listed in chart is disconnected.) from Last 3 Months Immunizations Name Administration Dates Next Due Influenza Injectable Quadriv alant Preservative Free IIV4 MDCK 08/07/2022,08/27/2019 Influenza injectable quadriv alent preservative free 11/21/2023,01/10/2022,10/22/2021 Pfizer Covid-19 Vaccine 12+ 11/21/2023 Pneumococcal Conjugate PCV 20 02/17/2024 Tdap 10/22/2021 Family History Medical History Relation Name Comments Schizophrenia Brother Hepatitis Father Liver disease Father Cancer Maternal Grandmother COPD Mother Diabetes Mother Heart disease Mother Hypertension Mother Mental illness Mother Substance use Mother Bipolar disorder Sister Substance use Sister Relation Name Status Comments Brother Father Maternal Grandmother Mother Alive Sister Social History Tobacco Use Types Packs/Day Years Used Date Smoking Tobacco: Never Smokeless Tobacco: Never Tobacco Cessation:Counseling Given: Not Answered Housing Stability Answer Date Recorded What is your housing situation today? I have dillan white 11/21/[address] you [...] Orientation Bisexual 03/15/2023 10 :36 AM EDT Last Filed Vital Signs Vital Sign Reading Time Taken Comments Blood Pressure 114/73 06/09/2024 10:51 AM EDT Pulse 67 06/09/2024 10:51 AM EDT Temperature 36.7 ??C (98.1 ??F) 06/09/2024 10:51 AM E DT Respiratory Rate 16 06/09/2024 10:51 AM EDT Oxygen Saturation 98% 06/09/2024 10:51 AM EDT Inhaled Oxygen Concentration - - Weight 54.3 kg (119 lb 9.6 oz) 06/09/2024 10:51 AM EDT Height 149.9 cm (4' 11 ) 06/09/2024 10:51 AM EDT Body Mass Index 24.16 06/09/2024 10:51 AM EDT Plan of Treatment Health Maintenance Due Date Last Done Comments CT Colonography 1978 Colonoscopy 1978 Colorectal Cancer Screening 1978 Dental Oral Exam 1978 Dental Prophylaxis 1978 Dental X-Ray: Full Mouth 1978 FIT DNA/Cologuard 1978 FIT 1978 FOBT 1978 Sigmoidoscopy 1978 Alcohol/Substance Use Screening 1990 Family Planning (PISQ) 1993 Hepatitis B Vaccines (1 of 3 - 19+ 3-dose series) 1997 COVID-19 Vaccine ( season) 2024 11/21/2023, 10/10/2022, 01/10/2022, Additional history exists Influenza Vaccine (#1) 2024 , 08/07/2022, 01/10/2022, Additional history exists Dental X-Ray: Bitewings 09/26/2024 09/25/2023, 03/21 Depression Screening 11/21/2024 11/21/2023, 11/21/20 23 SDOH Screening 11/21/2024 11/21/2023 Tobacco Screening 06/09/2025 06/09/2024 Diagnostic Breast Imaging 12/10/20252024, 02/11/2024, 02/11/2024, Additional history exists Cervical Cancer Screening 06/09/2027 Pap Smear 06/09/2027 06/09/2024 Zoster Vaccines (1 of 2) 2028 HPV/Cotest 06/09/2029 06/09/2024 DTaP/Tdap/Td Vaccines (2 - Td or Tdap) 10/22/2031 10/22/2021 RSV Patients and Patients Aged 60 years or older (1 - 1-dose 75+ series) 2053 HIV Screening Completed 11/27/2023, 08/09/2021 Hepatitis C Screening Completed 11/27/2023, 021 Pneumococcal Vaccine: Pediatrics (0 to 5 Years) and At-Risk Patients (6 to 49) Years) Completed 02/17/2024 HIB Vaccines Aged Out No longer eligi ble based on patient's age to complete this topic HPV Vaccines Aged Out No longer eligi ble based on patient's age to complete this topic Hepatitis A Vaccines Aged Out No long er eligible based on patient's age to complete this topic IPV Vaccines Aged Out No longer eligi ble based on patient's age to complete this topic Meningococcal Vaccine Aged Out No benji ousmane eligible based on patient's age to complete this topic RSV under 20 months Aged Out No longe r eligible based on patient's age to complete this topic Rotavirus Vaccines Aged Out No longer eligible based on patient's age to complete this topic Procedures Procedure Name Priority Date/Time Associated Diagnosis Comments BI MAMMOGRAM DIAGNOSTIC TOMOSYNTHESIS BILATERAL Routine 12/10/2024 10:15 AM EST THINPREP IMAGING PAP AND HPV MRNA E6/E7 WITH REFLEX TO HPV 16,18/45 Routine 06/09/2024 12:00 AM EDT HEPATITIS C AB W/REFL TO HCV RNA, QN, PCR Routine 11/27/2023 12:35 PM EST Hot flashes HIV 1/2 ANTIGEN/ANTIBODY, FOURTH GENERATION W/RFL Routine 11/27/2023 12:35 PM EST Hot flashes BITEWING - SINGLE RADIOGRAPHIC IMAGE Routine 09/25/2023 11:30 AM EDT Symptomatic periapical periodontitis from Last 3 Months or Most Recently Relevant to Health Maintenance Results * BI Mammogram Diagnostic Tomosynthesis Bilateral (12/10/2024 10:15 AM EST) Anatomical Region Laterality Modality Breast Bilateral Mammography 12/10/2024 10:1 5 AM EST Narrative 12/10/2024 11:00 AM EST ? [facility] ? [address] ?[place] [address] ? Mammography Report ? Signed ? Patient: Gilbert,Payton ?MR#: [id number] ?? [id number] ? : 1980 ?Acct:[id number] ? Age/Sex: 44 / F ?ADM Date: 01/10/25 ? Loc: HO.MAMMO ? Attending Dr: Renetta Shane DO ? Ordering Physician: Renetta Shane DO ? Results: 3.12MProbably Benign Finding - 12 month F/U ?? Suggested ? Date of Service: 12/10/24 ?Follow Up: 12 month diagnos ?? tic follow up ? Procedure(s): MM tomosynthesis diagnostic BI ?? Accession Number(s): [id number] ? cc: Renetta Shane DO ? EXAMINATION: ?? MM DIAGNOSTIC DIGITAL BREAST TOMOSYNTHESIS, BILATERAL ? CLINICAL INFORMATION: ? 1 year follow-up for calcifications in the upper outer left breast. ? COMPARISON: ?? Mammography: Comparison is made with relevant prior exams. ? TECHNIQUE: ?? Digital breast mammography with tomosynthesis is performed in both the ?? craniocaudal and mediolateral oblique views along with computer-aided ?? detection (CAD). ? FINDINGS: ?? The breasts are heterogeneously dense, which may obscure small masses ?? (ACR BI-RADS breast composition Category c). ?? History seen punctate calcifications in the upper outer left breast are ?? not definitively seen today on magnification views. ?? There are no significant masses, abnormal calcifications, or other ?? abnormalities. ? Results are provided to the patient at time of visit by the ?? technologist. ? MM/MM tomosynthesis diagnostic BI ?? IMPRESSION: ?? Recommend one-year diagnostic follow-up with magnification views of the ?? left breast to evaluate for upper outer quadrant calcifications. At ?? that time the patient will be due for bilateral mammography. ? ASSESSMENT: ? BI-RADS BI-RADS 3 - Probably benign finding(s) - 12 month follow-up ?? suggested ? RECOMMENDATION: ?? 12 month diagnostic follow up ? This patient's information was entered into a reminder system with a ?? target due date for their next mammogram. ? Electronically signed by: ??Daisy De La Rosa DO ??12/10/2024 10:57 AM EST ? Dictated By: ?Daisy De La Rosa DO ? Signed By: ?<Electronically signed by Daisy De La Rosa, DO in OV> ? 12/10/24 1057 ? DD/ 1015 ? TD/TT: 12/10/24 1038 ? Supervisor Inspection And Testing: ? Procedure Note [address] - 12/10/2024 [facility] [address] [place] [address] Mammography Report Signed Patient: Laura Block#: [id number] : 1980Acct:[id number] Age/Sex: 44 / FADM Date: 12/10/24 Loc: HO.MAMMO Attending Dr: Renetta Shane DO Ordering Physician: Renetta Shane DO Results: 3.12MProbably Benign Finding - 12 month F/U Suggested Date of Service: 12/10/24Follow Up: 12 month diagnos tic follow up Procedure(s): MM tomosynthesis diagnostic BI Accession Number(s): [id number] cc: Renetta Shane DO EXAMINATION: MM DIAGNOSTIC DIGITAL BREAST TOMOSYNTHESIS, BILATERAL CLINICAL INFORMATION: 1 year follow-up for calcifications in the upper outer left breast. COMPARISON: Mammography: Comparison is made with relevant prior exams. TECHNIQUE: Digital breast mammography with tomosynthesis is performed in both the craniocaudal and mediolateral oblique views along with computer-aided detection (CAD). FINDINGS: The breasts are heterogeneously dense, which may obscure small masses (ACR BI-RADS breast composition Category c). History seen punctate calcifications in the upper outer left breast are not definitively seen today on magnification views. There are no significant masses, abnormal calcifications, or other abnormalities. Results are provided to the patient at time of visit by the technologist. MM/MM tomosynthesis diagnostic BI IMPRESSION: Recommend one-year diagnostic follow-up with magnification views of the left breast to evaluate for upper outer quadrant calcifications. At that time the patient will be due for bilateral mammography. ASSESSMENT: BI-RADS BI-RADS 3 - Probably benign finding(s) - 12 month follow-up suggested RECOMMENDATION: 12 month diagnostic follow up This patient's information was entered into a reminder system with a target due date for their next mammogram. Electronically signed by: Daisy De La Rosa DO 12/10/2024 10:57 AM EST Dictated By: Daisy De La Rosa DO Signed By: <Electronically signed by Daisy De La Rosa DO in OV> 12/10/24 1057 DD/ 1015 TD/TT: 12/10/24 1038 Supervisor Inspection And Testing: Renetta Shane DO IM BI PROCEDURES Final Resu lt * ThinPrep Imaging Pap and HPV mRNA E6/E7 with Reflex to HPV 16,18/45 (06/09/2024 12:00 AM EDT) HPV 16 RNA [facility] HPV 18/45 RNA [facility] HPV nRNA E6/E7 Not Detected Not Detected [facility] Comment:Methodology: Transcr iption-Mediated AmplificationThis assay detects E6/E7 viral messenger RNA (mRNA) from 14high-risk HPV types (16,18,31,33,35,39,45,51,52,56,58,59,66,68).Cervical sources are required for HPV testing.If a vaginal source from a patient who has had atotal hysterectomy with removal of cervix wassubmitted, please contact the testing laboratoryfor alternative testing options.For additional information, please refer [email or web address](This link if provided for information/educational purposes only.)THIS TEST WAS PERFORMED AT:[facility] [address] [id number] SAMUEL MD SOURCE: SEE NOTE [facility] Comment:Cervix Report Status: [facility] Clinical Information: SEE NOTE [facility] Comment:Routine exam LMP: SEE NOTE [facility] Comment:04/21/20 Prev. PAP: SEE NOTE [facility] Comment:CNG Prev. BX: SEE NOTE [facility] Comment:NONE GIVEN Statement Of Adequacy: SEE NOTE [facility] Comment:Satisfactory for katlin luation.Endocervical/transformation zone component absent. General Categorization: [facility] Interpretation/Result: SEE NOTE [facility] Comment:Cytology Results: Ne gative for intraepitheliallesion or malignancy. Cytology Comment SEE NOTE [facility] Comment:This Pap test has be en evaluated with computerassisted technology. Ship Cleaner: SEE NOTE [facility] Comment:MSM, CT(ASCP)CT scre ening location: [address] [address] Review Ship Cleaner: [facility] Pathologist [facility] PAP Infection [facility] See Note SEE [facility] Comment:EXPLANATORY NOTE:The Pap is a screening test for cervical cancer. It isnot a diagnostic test and is subject to false negativeand false positive results. It is most reliable when asatisfactory sample, regularly obtained, is submittedwith relevant clinical findings and history, and whenthe Pap result is evaluated along with historic andcurrent clinical information. 06/09/2024 06/09/2024 Narrative [facility] - 06/11/2024 5:20 PM EDT SEE SCANNED RESULTS IN [id number] Renetta Acosta [facility] ORDERABLES Fin al Result Performing Organization Address [facility]/ZIP Co de Phone Number [facility] [address] [place] [address] [phone] * Hepatitis C Antibody with Reflex to HCV, RNA, Quantitative, Real-Time PCR (11/27/2023 12:35 PM EST) Hepatitis C Antibody Nonreactive Nonreactive [facility] Comment:Antibodies to HCV no t detected; does not exclude early acuteHCV infection. Blood Venous blood specimen / Unknown 11/27/2023 12:35 PM EST 11/27/2023 12:35 PM EST Renetta Acosta [facility] BLOOD ORDERABLES Final R esult Performing Organization Address [facility] Co de Phone Number [facility] [address] [place] [address] [phone] * HIV-1/2 Antigen and Antibodies, Fourth Generation, with Reflexes (11/27/2023 12:35 PM EST) HIV AB/AG Nonreactive Nonreactive [facility] Comment:HIV-1 p24 Ag and/or HIV-1/HIV-2 Ab not detected.A test result that is nonreactive does not exclude thepossibility of exposure to or infection with HIV-1 and/orHIV-2. Nonreactive results in this assay for individualswith prior exposure to HIV-1 and/or HIV-2 may be due toantigen and antibody levels that are below the limit ofdetection of this assay.The Breeze HIV Ag/Ab Combo assay result andsupplemental assay results should be interpreted inconjunction with the patient's clinical presentation,history and other laboratory results. If the results areinconsistent with clinical evidence, additional testing issuggested to confirm the result. Blood Venous blood specimen / Unknown 11/27/2023 12:35 PM EST 11/27/2023 12:35 PM EST us Renetta Shane DO LAB BLOOD ORDERABLES Final R esult [facility] [address] [place] [address] [phone] from Last 3 Months or Most Recently Relevant to Health Maintenance Insurance [facility] C3 DENTAL-[facility] MEDICAID STAND ADULT Care Teams County Judge Relationship Specialty Start Date End Date Renetta Shane DO [address] [place] [phone] PCP - General Family Medicine 06/20/21
--- OUTSIDE RECORDS SUMMARY | 2025-03-22 21:17 | XMS_ITS | Encounter Summary ---
Author Organization [employer] Address [address] [facility] 7t [place] [address] Care Team Providers Care Camera Tuning Engineer Name Role Phone Renetta Shane DO Primary Care Provider + [phone] Reason for Visit * Reason Comments Med Refill Encounter Details Date Type Department Care Team ([facility] st Contact Info) Description 07/21/2024 Refill [facility] MED & PEDS [address] [place], [place] [phone] Renetta Shane DO [address] [facility] [place] [address] Social History Tobacco Use Types Packs/Day Years [...] AM EDT documented as of this encounter Plan of Treatment Not on file documented as of this encounter Visit Diagnoses Not on filedocumented in this encounter Care Teams Camera Tuning Engineer Relationship Specialty Start Date End Date Renetta Shane DO [address] [place] [phone] PCP - General Family Medicine 06/20/21 documented as of this encounter
--- OUTSIDE RECORDS SUMMARY | 2025-03-22 21:17 | XMS_ITS | Encounter Summary ---
Author Organization [facility] Address [address] [place] [address] 7t [place] [address] Care Team Providers Care Mussel Opener Name Role Phone Renetta Shane DO Primary Care Provider Encounter Details Date Type Department Care Team (Latest Contact Info) Description 05/14/2022 Abstract [facility] CONVERSIONS Dental, Provider, DDS Social History Tobacco Use Types Packs/Day Years Used Date Smoking Tobacco: Never Assessed Comments Unknown Sex and Gender Information Value [...] on filedocumented in this encounter Care Teams Mussel Opener Relationship Specialty Start Date End Date Renetta Shane DO [address] [place] [phone] PCP - General Family Medicine 06/20/21 documented as of this encounter
--- OUTSIDE RECORDS SUMMARY | 2025-03-22 21:17 | XMS_ITS | Encounter Summary ---
Author Organization [employer] Address [address] [facility] [address]t [place] [address] Care Team Providers Care Pourer Off Name Role Phone Renetta Shane DO Primary Care Provider + [phone] Reason for Visit * Reason Comments Med Refill Encounter Details Date Type Department Care Team ([facility] st Contact Info) Description 10/05/2024 Refill [facility] MED & PEDS [address] [place], [place] [phone] Renetta Shane DO [address] [facility] [place] [address] Social History Tobacco Use Types Packs/Day Years [...] on filedocumented in this encounter Care Teams Pourer Off Relationship Specialty Start Date End Date Renetta Shane DO [address] [place] [phone] PCP - General Family Medicine 06/20/21 documented as of this encounter
[2025-03-22 22:23] LABS: MANUAL DIFF FLAG NO
[2025-03-22 22:24] LABS: Basophils Percent Auto 0.3 % (0-2); Eosinophils Absolute Auto 0.3 X10*3/uL (0.0-0.4); Hematocrit 36.6 % (37.0-47.0); Hemoglobin 12.7 g/dl (12.0-16.0); Imm Gran Abs Auto 0.03 X10*3/uL (0.00-0.03); Imm Gran Pct Auto 0.3 % (0.0-0.4); Lymphocytes Absolute Auto 3.6 X10*3/uL (1.2-4.9); Lymphocytes Percent Auto 36.5 % (20-40); Mean Corpuscular HGB Conc 34.7 g/dl (31.0-35.0); Mean Corpuscular Hemoglobin 34.2 pg (27.0-33.0); Mean Corpuscular Volume 98.7 fL (80.0-98.0); Mean Platelet Volume 10.2 fL (9.4-12.3); Monocytes Percent Auto 10.5 % (2-11); Neutrophils Absolute Auto 4.8 x10*3/uL (2.0-8.3); Neutrophils Percent Auto 49.4 % (45-73); Platelet Count 220 X10*3/uL (160-400); Red Blood Count 3.71 X10*6/uL (4.20-5.50); Red Cell Distribution Width 13.6 % (11.0-16.0); White Blood Count 9.8 X10*3/uL (4.8-10.8)
[2025-03-22 22:25] VITALS: BP 124/72; PULSE 72; RESP 18; TEMP 36.8; O2SAT 98
[2025-03-22 22:39] LABS: Alanine Aminotransferase 11 U/L (0-31); Albumin Level 3.9 g/dL (3.5-5.0); Alkaline Phosphatase 57 U/L (39-117); Anion Gap 9 (12-20); Aspartate Amino Transferase 17 U/L (5-31); Bilirubin Total 0.4 mg/dL (0.0-1.0); Blood Urea Nitrogen 10 mg/dL (9-16); Calcium 8.7 mg/dL (8.4-10.2); Carbon Dioxide 28 mmol/L (22-29); Chloride 109 mmol/L (96-108); Estimated Glomerular Filt Rate > 60; Glucose Random 81 mg/dL (60-115); Magnesium 2.1 mg/dL (1.6-2.6); Sodium 142 mmol/L (135-145); Total Protein 6.4 g/dL (6.5-8.0)
[2025-03-22] MEDS: Cyclobenzaprine HCl 10 MG TABLET PO (22:45)
[2025-03-22 22:48] LABS: Troponin-I High Sensitivity < 2.7 ng/L (<3.5-17.0)
[2025-03-22 22:58] VITALS: BP 124/72; PULSE 72; RESP 18; TEMP 36.8; O2SAT 98
== END 2025-03-22 22:58 | disposition home or self-care (01) ==
PROVIDERS: Physician Assistant; Emergency Provider Emergency Medicine; PCP Family Medicine
DX: M54.12 Radiculopathy, cervical region (principal); R00.0 Tachycardia, unspecified; M54.2 Cervicalgia; R94.31 Abnormal electrocardiogram [ECG] [EKG]; R51.9 Headache, unspecified; Z79.899 Other long term (current) drug therapy
CPT/HCPCS: 36415; 70450; 72125; 80053; 82550; 83735; 84484; 85025; 93005; 99284

== ENCOUNTER → 2025-03-22 16:34 | Outpatient (BNV) | payer MEDICAID, SELFPAY | PROVIDERS: Emergency Provider Emergency Medicine; PCP Family Medicine; Visit Provider Internal Medicine | DX: R00.0 Tachycardia, unspecified (principal); R94.31 Abnormal electrocardiogram [ECG] [EKG] | CPT/HCPCS: 93010 ==

== ENCOUNTER → 2025-03-22 20:59 | Outpatient (BNV) | payer MEDICAID, SELFPAY | PROVIDERS: Emergency Provider Emergency Medicine; PCP Family Medicine; Visit Provider Radiology Diagnostic Radiology | DX: M54.12 Radiculopathy, cervical region (principal); R20.2 Paresthesia of skin | CPT/HCPCS: 70450; 72125 ==